=== PATIENT | female | born 1980 | race Caucasian/White ===

== ENCOUNTER 2020-08-03 14:41 | Outpatient (CLI) | payer OTHER, SELFPAY ==
--- NOTE | ~2020-08-03 | CT_ITS ---
EXAMINATION: CT abdomen pelvis wo con DATE: 08/03/2020 15:25 INDICATION: Left flank pain. Gross hematuria. History of kidney stones. TECHNIQUE: Computed tomography (CT) of the abdomen and pelvis was performed without intravenous contr ast. Automated exposure control and iterative reconstruction technique were employed. Exam dose: 194 .36 mGy-cm total exam DLP. COMPARISON: 10/15/2015 CT abdomen pelvis FINDINGS: Chest and abdominal situs inversus. Normal heart size. No pericardial or pleural effusion. The lower lung zones are clear of infiltrate o r consolidation. No hepatic, splenic, pancreatic, and adrenal or renal space-occupying mass lesion is evident on this limited noncontrast examination. There are numerous calculi scattered throughout both kidneys. No ure teral calculus or hydroureteronephrosis is detected. Normal caliber of the abdominal aorta. No intraperitoneal or retroperitoneal or pelvic mass lesion or adenopathy or ascites. Retroverted uterus. The urinary bladder is unremarkable. Normal left-sided appendix. No bowel obstruction, bowel wall thickening, pneumatosis or intraperitone al free air. There is minimal grade 1 anterolisthesis at L5-S1. Moderate degenerative disc disease with some eburn ation of the apposing L5 and S1 vertebral endplates. Schmorl's nodes at the inferior vertebral endpla te of L5. The included skeletal structures are otherwise unremarkable. IMPRESSION: Extensive bilateral nephrolithiasis Mild colonic diverticulosis Complete chest and abdominal situs inversus Reviewed, dictated and finalized at [facility]. Reviewed, dictated and finalized at [facility].
== END 2020-08-03 14:42 | disposition home or self-care (01) ==
PROVIDERS: PCP Nurse Practitioner Family
DX: R10.9 Unspecified abdominal pain (principal); R31.0 Gross hematuria; K57.30 Diverticulosis of large intestine without perforation or abscess without bleeding; N20.0 Calculus of kidney
CPT/HCPCS: 74176; 76536

== ENCOUNTER 2020-08-03 14:56 | Outpatient (CLI) | payer OTHER, SELFPAY ==
--- NOTE | ~2020-08-03 | US_ITS ---
EXAMINATION: US thyroid DATE: 08/03/2020 15:35 INDICATION: Goiter. TECHNIQUE: Multiple ultrasound images of the thyroid were obtained. COMPARISON: None. FINDINGS: The right thyroid lobe measures 4.4 x 1.9 x 1.4 cm. The left thyroid lobe measures 5.1 x 1.5 x 1.3 c m. In the right thyroid lobe, there is a 6 mm solid, hypoechoic, pujyi-ozew-oaxw nodule with smooth margin and peripheral calcification (TI-RADS TR4). In the left thyroid lobe, there is a 9 mm solid, i soechoic, zqkjm-cspk-owdd nodule with ill-defined margin without echogenic foci (TR4). IMPRESSION: 1. Small thyroid nodules, likely not clinically significant. No follow-up is needed. Reviewed, dictated and finalized at [facility]. IMPRESSION: 1. Small thyroid nodules, likely not clinically significant. No follow-up is ne eded.
== END 2020-08-03 14:57 | disposition home or self-care (01) ==
PROVIDERS: PCP Nurse Practitioner Family; Visit Provider Nurse Practitioner Family
DX: E04.9 Nontoxic goiter, unspecified (principal)
CPT/HCPCS: 76536

== ENCOUNTER 2020-12-20 17:32 | Emergency (ER) | payer OTHER, SELFPAY ==
--- NOTE | ~2020-12-20 | XR_ITS ---
EXAMINATION: XR abdomen/kub 1V EXAM DATE: 12/20/2020 18:06 INDICATION: Abdominal pain. History kidney stones. TECHNIQUE: Frontal projection(s) of the abdomen for interpretation. There is no prior study for amelia burgess. FINDINGS: There are small bilateral calcifications projecting over the renal contours bilaterally. T here is a 2 mm punctate calcification in the right side of the pelvis, could be phlebolith but can't exclude distal ureteral stent stone if patient has right flank pain. This finding has been indicated, marked on the examination for review, clinical correlation. Moderate amount of colonic stool and g as. There is no organomegaly. Mild bony degenerative changes. IMPRESSION: 1. Bilateral nephrolithiasis. 2. Punctate right pelvic calcification, can't exclude 2 mm UVJ stone. Reviewed, dictated and finalized at location A. [employer]
--- NOTE | 2020-12-20 17:40 | ED.GENADULT ---
HPI - General Adult General Chief complaint: Urogenital-Female Stated complaint: UTI Time Seen by Provider: 12/20/20 17:40 Source: patient Mode of arrival: ambulatory Limitations: no limitations History of Present Illness HPI narrative: 40-year-old female patient presents to the [facility] with complaints of urinary symptoms for the past 2 days. Patient states she has had urgency and frequency for the past 2 days and today has started getting some discomfort and pain with urination. 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 Patient states she does take Flomax once a week however if there is a kidney stone passing and her urologist typically advises her to take it every day. Patient denies any fevers, body aches or chills. Denies any nausea, vomiting or diarrhea. Denies any concerns for . Related Data Home Medications Medication Instructions Recorded Confirmed fluoxetine 20 mg PO DAILY 12/20/20 12/20/20 methylphenidate HCl 20 mg PO DAILY 12/20/20 12/20/20 ondansetron HCl 8 mg PO DAILY 12/20/20 12/20/20 tamsulosin 0.4 mg PO WEEKLY 12/20/20 12/20/20 Allergies Allergy/AdvReac Type Severity Reaction Status Date / Time No Known Allergies Allergy Verified 12/20/20 17:46 Review of Systems Review of Systems: Narrative: CONSTITUTIONAL: Denies fever, chills, or sweats. EYES: Denies visual changes, redness, or discharge. ENT: Denies rhinorrhea, congestion, sore throat, or otalgia. CARDIOVASCULAR: Denies chest pain, palpitations, or edema. RESPIRATORY: Denies cough or dyspnea. GASTROINTESTINAL: Positive lower abdominal pain, denies nausea, vomiting, or diarrhea. GENITOURINARY: Denies dysuria or hematuria. Positive pain with urination, urgency and frequency SKIN: Denies rash or itching. MUSCULOSKELETAL: Denies back pain, joint pain, or myalgia. NEUROLOGIC: Denies headache, numbness, or weakness. PSYCHIATRIC: Denies anxiety or depression. [facility] Family History Family History Mother Family history of thyroid disease Father Patient's father is in good health Sibling Patient's brother is in good health Social History Social History Smoking status: Never smoker Alcohol intake: current Comments At the time of my signature I agree with nursing past medical history, surgical, social, and family history. There is no relevant family history pertinent to the presenting complaint. Exam Narrative: Exam Narrative: GENERAL: Well-appearing, well-nourished, and in no acute distress. HEAD: Normocephalic, atraumatic. EYES: PERRLA and EOMI. ENT: Nares clear, no rhinorrhea or epistaxis. Mucous membranes moist. NECK: Supple. No lymphadenopathy CHEST: Clear to auscultation. No respiratory distress. HEART: Regular rate and rhythm. No murmur heard. Normal peripheral pulses. ABDOMEN: Soft, nontender, nondistended, normal active bowel sounds. No CVA tenderness on percussion EXTREMITIES: Normal range of motion. No edema. SKIN: Warm, dry, no rash. NEURO: No focal deficits. Alert and oriented x3. Course Reevaluation(s) Reevaluation #1: Reevaluated patient after her KUB has resulted. Notified her that the KUB shows that she might have possibly distal right ureteral stone but they cannot specify this. Given the patient's history of multiple renal stones in the past I have encouraged her to go ahead and start taking her Flomax that she has prescribed to her at home daily for the next couple of days to see if this improves her symptoms. We will also send her home with an antibiotic and send her urine off to the lab for culture of a UTI. Patient verbalized understanding of this denies any other questions or concerns at this time. Date: 12/20/20 Time: 18:19 Vital Signs Vital signs: Vital Signs Temperature 36.3 C L 12/20/20 17:50 Pulse Rate 78
[2020-12-20 17:50] VITALS: BP 137/68; PULSE 78; RESP 16; TEMP 36.3; O2SAT 99
== END 2020-12-20 18:24 | disposition home or self-care (01) ==
PROVIDERS: Emergency Provider Nurse Practitioner Family; PCP Family Medicine
DX: R39.198 Other difficulties with micturition (principal); R30.0 Dysuria; R31.9 Hematuria, unspecified; Q61.5 Medullary cystic kidney
CPT/HCPCS: 74018; 81003; 87086; 99203; G0463